=== PATIENT | female | born 1990 | race African-American/Black ===

== ENCOUNTER → 2016-03-04 | Outpatient (CLI) | payer OTHER ==
[2016-03-04 10:28] LABS: CH 28.5; CHCM 32.1; HCT 32.6 % (34.0-46.0); HDW 3.07; HGB 10.6 gm/dL (11.4-16.0); Hypochromasia Slight; MCH 28.8 pg (25.0-35.0); MCHC 32.4 g/dL (31.0-37.0); MCV 89.1 fL (80.0-100.0); Mean Platelet Volume 8.7; RBC 3.66 m/uL (3.80-5.40); RDW 13.7 % (11.5-15.5); WBC 9.7 k/uL (3.8-10.6)
== END | disposition home or self-care (01) ==
LOC: LABWHC1 08:33
PROVIDERS: ATTEND Obstetrics & Gynecology
DX: Z34.82 Encounter for supervision of other normal pregnancy, second trimester (principal); Z3A.00 Weeks of gestation of pregnancy not specified
CPT/HCPCS: 36415; 82950; 85027

== ENCOUNTER → 2016-04-29 | Outpatient (CLI) | payer OTHER ==
--- NOTE | 2016-04-29 15:40 | US ---
EXAMINATION TYPE: US OB anatomy transabd DATE OF EXAM: 04/29/2016 2:56 PM COMPARISON: NONE HISTORY: LGA TECHNIQUE: Transabdominal (TA) EXAM MEASUREMENTS: GESTATIONAL AGE / DATING Physician Established: (35 weeks/1 days) EDC: 06/02/16 Dates by LMP: (34 weeks/6 days) EDC: 06/03/16 Dates by First Scan: (35 weeks/2 days) EDC: 06/01/16 Dates by Current Scan for: (35 weeks/1 days) EDC: 06/02/16 SURVEY IUP: Single PLACENTA: Anterior PREVIA: No previa EMILIA: 15.2 cm Normal CERVICAL LENGTH (transabdominal: norm > 3.0cm): 3.2 cm BIOMETRY PRESENTATION: Vertex LIE: Longitudinal BPD: 8.7 cm 35 weeks / 0 days HC: 31.5 cm 35 weeks / 3 days AC: 31.2 cm 35 weeks / 1 days FL: 7.0 cm 35 weeks / 6 days ESTIMATED WEIGHT IN GRAMS: 2655 grams ESTIMATED WEIGHT IN LBS/OZS: 5 lbs. 14 oz. WEIGHT PERCENTAGE BASED ON ESTABLISHED DATE: 53.4 % HC/AC: 1.01 normal FL/AC: 22.44 normal HEART RATE: 135 bpm RHYTHM: Normal ANATOMY SEEN (within normal limits): * Lateral Vent (< 1 cm) 0.6 cm Choroid Plexus (bilateral) Midline Falx Four Chamber Heart Stomach Situs Nose / Lips Diaphragm Kidneys (bilateral) Bladder Cord Insert Three Vessel Cord Longitudinal Spine Transverse Spine ANATOMY NOT SEEN: due to age and position * Cisterna Magna (< 1.1 cm) cm * Nuchal Fold (< 0.6 cm) cm * Cerebellum (varies with age) cm Cavus Septi Pellucidi Outflow tracts: LVOT/RVOT Arms (bilateral) Legs (bilateral) TECHNOLOGIST IMPRESSION: Single viable IUP 35wks/1day with JOVITA of 06/02/16. IMPRESSION: 1. Single intrauterine gestation estimated at 35 weeks 1 day gestation based on the current ultrasoun d measurements. This would have a calculated EDC of 06/02/2016. Correlate this with her physician gentry garcia EDC of 06/02/2016. 2. Cardiac activity measures 135 bpm.
== END | disposition home or self-care (01) ==
LOC: RADUSWWP 14:22
PROVIDERS: ATTEND Obstetrics & Gynecology
DX: O36.63X0 Maternal care for excessive fetal growth, third trimester, not applicable or unspecified (principal); Z3A.25 25 weeks gestation of pregnancy
CPT/HCPCS: 76811

== ENCOUNTER → 2016-05-05 | Outpatient (CLI) | payer OTHER ==
[2016-05-05 14:57] LABS: Bilirubin, Delta 0.2 mg/dL (0.0-0.2); Total Bilirubin 0.4 mg/dL (0.2-1.3); Total Protein 6.1 g/dL (6.3-8.2)
== END ==
LOC: LABWHC1 14:24
PROVIDERS: ATTEND Obstetrics & Gynecology
DX: O26.619 Liver and biliary tract disorders in pregnancy, unspecified trimester (principal)
CPT/HCPCS: 36415; 80076; 82239

== ENCOUNTER 2016-05-27 20:11 | Inpatient (IN) | payer OTHER ==
[2016-05-27] MEDS ORDERED: CARBOPROST TROMETHAMINE 250 MCG/ML 1 ML AMP IM PRN (20:35)
[2016-05-27] MEDS ORDERED: LIDOCAINE 1% (PF) 10 MG/ML (30 ML SDV) SQ PRN (20:35)
[2016-05-27] MEDS ORDERED: METHYLERGONOVINE 0.2 MG/ML 1 ML AMP IM PRN (20:35)
[2016-05-27] MEDS ORDERED: TERBUTALINE 1 MG/ML VIAL SQ PRN (20:35)
[2016-05-27] MEDS ORDERED: OXYTOCIN 10 UNIT/ML 1 ML VIAL IM PRN (20:35)
[2016-05-27] MEDS ORDERED: LACTATED RINGERS 1,000 ML IV SCH (20:45)
[2016-05-27 21:08] LABS: Basophils % (A) 0 %; CH 25.1; CHCM 30.9; Eosinophils # (A) 0.1 k/uL (0-0.7); Eosinophils % (A) 1 %; HCT 34.6 % (34.0-46.0); HDW 3.33; HGB 11.2 gm/dL (11.4-16.0); Hypochromasia Marked; Luc # (Auto) 0.36; Luc % (Auto) 4; Lymphocytes # (A) 1.4 k/uL (1.0-4.8); Lymphocytes % (A) 15 %; MCH 26.3 pg (25.0-35.0); MCHC 32.4 g/dL (31.0-37.0); MCV 81.4 fL (80.0-100.0); Monocytes # (A) 0.5 k/uL (0-1.0); Monocytes % (A) 5 %; Neutrophils # (A) 7.1 k/uL (1.3-7.7); Neutrophils % (A) 75 %; RBC 4.25 m/uL (3.80-5.40); RDW 15.4 % (11.5-15.5); WBC 9.5 k/uL (3.8-10.6); WBC (Perox) 10.07
[2016-05-27] MEDS: BUTORPHANOL 1 MG/ML 1 ML VIAL IV PRN ×2 (21:12→23:12)
[2016-05-27 21:18] VITALS: BMI 33.1
--- NOTE | 2016-05-27 22:14 | P.HPOB ---
History of Present Illness H&P Date: 05/27/16 Chief Complaint: Contractions This is a 25-year-old female 2 para 1 with an estimated date of confinement of 06/03/2016, estimated gestational age of 39-0/7 weeks, who presented to labor and delivery with complaints of contractions. She denied any rupture membranes, however in triage her water did break during the exam. Clear fluid was noted. course has been uncomplicated and has been with Dr. Hyman. labs: Random glucose-80 Hepatitis B surface antigen-negative Hemoglobin-12.3 Rubella-immune Blood type-B+ Antibody screen-negative Quad screen-negative Obstetrical ultrasounds-normal anatomy One hour Glucola-124 Group B streptococcus-negative Obstetrical history: . History of 1 vaginal delivery at term. Review of Systems Gastrointestinal: Reports abdominal pain (Contractions) Genitourinary: Reports pelvic pain, Reports Past Medical History Past Medical History: Asthma Additional Past Medical History / Comment(s): Anemia History of Any Multi-Drug Resistant Organisms: None Reported Past Surgical History: Adenoidectomy, Tonsillectomy Additional Past Surgical History / Comment(s): lymph nodes removed in neck Past Anesthesia/Blood Transfusion Reactions: Previous Problems w/ Anesthesia Additional Past Anesthesia/Blood Transfusion Reaction / Comment(s): Pt states trouble breathing with last epidural Past Psychological History: No Psychological Hx Reported Smoking Status: Never smoker Past Alcohol Use History: None Reported Past Drug Use History: None Reported - Past Family History Mother Family Medical History: No Reported History Medications and Allergies Home Medications Medication Instructions Recorded Confirmed Type Albuterol Inhaler [Ventolin Hfa 1 puff INHALATION RT-Q6H PRN 12/25/15 05/27/16 History Inhaler] Doxylamine Succinate [Unisom] 25 mg PO HS 12/25/15 05/27/16 History Gummies 1 tab PO QAM 12/25/15 05/27/16 History Pyridoxine [Vitamin B-6] 50 mg PO HS 12/25/15 05/27/16 History Allergies Allergy/AdvReac Type Severity Reaction Status Date / Time No Known Allergies Allergy Verified 05/27/16 20:20 Exam Osteopathic Statement: *. No significant issues noted on an osteopathic structural exam other than those noted in the History and Physical/Consult. - Vital Signs Vital signs: Vital Signs Temp Pulse Resp BP Pulse Ox 05/27/16 20:54 96.8 F L 84 16 140/71 100 05/27/16 20:18 96.8 F L 74 16 140/71 100 Intake and Output 05/27/16 05/27/16 05/27/16 06:59 14:59 22:59 Other: Weight 84.822 kg Patient Weight 05/28/16 06:59 Weight 84.822 kg HEENT: Within normal limits Heart: Regular rate and rhythm Lungs: Clear to auscultation bilaterally Abdomen: Cervix: 6-7 cm/70%/-2 station, posterior heart tones: Reactive Contractions: Every 3-5 minutes Extremities: Negative Homans Results Result Diagrams: 05/27/16 20:55 Abnormal Lab Results - Last 24 Hours (Table) 05/27/16 Range/Units 20:55 Hgb 11.2 L (11.4-16.0) gm/dL Assessment and Plan (1) 39 weeks gestation of Status: Acute (2) Active labor at term Status: Acute Plan: Admit for active labor. Stadol as needed for pain control. Expectant management.
[2016-05-27] MEDS ORDERED: OXYTOCIN 30 UNITS/500 ML NS 30 UNIT in SALINE 1 500ML.BAG IV SCH (22:15)
[2016-05-28] MEDS ORDERED: HYDROCORTISONE 2.5% RECTAL CREAM 30 GM TUBE RECTAL PRN (01:18)
[2016-05-28] MEDS ORDERED: OXYTOCIN 30 UNITS/500 ML NS 30 UNIT in SALINE 1 500ML.BAG IV SCH (01:18)
[2016-05-28] MEDS ORDERED: Acetaminophen-Codeine 300-30mg TAB PO PRN (01:18)
[2016-05-28] MEDS ORDERED: SIMETHICONE 80 MG CHEWABLE PO PRN (01:18)
[2016-05-28] MEDS ORDERED: BENZOCAINE/MENTHOL SPRAY 1 GM/SPRAY AEROSOL TOPICAL PRN (01:18)
[2016-05-28] MEDS ORDERED: diphenhydrAMINE 50 MG/ML 1 ML VIAL IVP PRN ×2 (01:18)
[2016-05-28] MEDS ORDERED: ACETAMINOPHEN TAB 325 MG TAB PO PRN (01:18)
[2016-05-28] MEDS ORDERED: diphenhydrAMINE 50 MG CAP PO PRN (01:18)
[2016-05-28] MEDS ORDERED: diphenhydrAMINE 25 MG CAP PO PRN (01:18)
[2016-05-28] MEDS ORDERED: WITCH HAZEL 1 EACH MED..PAD TOPICAL PRN (01:18)
[2016-05-28] MEDS ORDERED: ALBUTEROL NEBULIZED 2.5 MG/3 ML INHALATION PRN (01:18)
[2016-05-28] MEDS ORDERED: LANOLIN CREAM 5 GM TUBE TOPICAL PRN (01:18)
[2016-05-28] MEDS ORDERED: ZOLPIDEM 5 MG TAB PO PRN (01:18)
--- NOTE | 2016-05-28 01:21 | P.PROBDLV ---
Vaginal Delivery Note - . Vaginal Delivery Note: The patient progressed to complete dilation after oxytocin augmentation of labor and Stadol for pain control. Once reaching complete dilation, she began pushing. 's head came to a crown and then delivered in a right occiput anterior position across the perineum followed by the anterior left shoulder. Nose and mouth were bulb suctioned at the perineum. With one further push, the remainder the infant easily delivered and was placed on mother's abdomen. Cord was clamped and cut and was taken to warmer for evaluation. Terminal meconium was noted at delivery. A viable male infant was noted with scores of 9 at 1 minute and 10 at 5 minutes and weight was 8 lbs. 0 oz. Placenta delivered shortly thereafter, intact, with a three-vessel cord. Uterus contracted well after oxytocin was given and uterine massage was carried out. Inspection of the perineum revealed a small first-degree perineal laceration. This area was anesthetized with 1% lidocaine and then sutured with 3-0 Vicryl suture in a running locked fashion. Estimated blood loss is approximately 100 mL's. Both mother and are in stable condition.
[2016-05-28] MEDS: IBUPROFEN 600 MG TAB PO PRN ×2 (02:28→08:06)
[2016-05-28] MEDS: Acetaminophen-Codeine 300-30mg TAB PO PRN ×3 (03:02→17:30)
[2016-05-28 06:53] LABS: Basophils % (A) 0 %; CHCM 30.7; Eosinophils # (A) 0.1 k/uL (0-0.7); Eosinophils % (A) 1 %; HCT 32.4 % (34.0-46.0); HGB 10.5 gm/dL (11.4-16.0); Hypochromasia Marked; Luc # (Auto) 0.26; Luc % (Auto) 2; Lymphocytes % (A) 8 %; MCH 26.5 pg (25.0-35.0); MCHC 32.6 g/dL (31.0-37.0); MCV 81.5 fL (80.0-100.0); Mean Platelet Volume 9.5; Monocytes # (A) 0.5 k/uL (0-1.0); Monocytes % (A) 4 %; Neutrophils # (A) 10.3 k/uL (1.3-7.7); Neutrophils % (A) 85 %; RBC 3.98 m/uL (3.80-5.40); RDW 15.4 % (11.5-15.5); WBC 12.1 k/uL (3.8-10.6); WBC (Perox) 13.72
[2016-05-28] MEDS: SENNOSIDES-DOCUSATE SODIUM 1 EACH TAB PO SCH ×2 (08:06→21:20)
[2016-05-28 16:14] VITALS: RESP 16
[2016-05-29] MEDS: SENNOSIDES-DOCUSATE SODIUM 1 EACH TAB PO SCH (08:21)
[2016-05-29] MEDS: Acetaminophen-Codeine 300-30mg TAB PO PRN (08:22)
--- NOTE | 2016-05-29 08:29 | P.DS ---
Providers Date of admission: 05/27/16 20:33 Expected date of discharge: 05/29/16 Attending physician: Dannielle Petersen Primary care physician: Stated None - Discharge Diagnosis(es) (1) 39 weeks gestation of Current Visit: Yes Status: Acute (2) Active labor at term Current Visit: Yes Status: Acute Hospital Course: This is a 25-year-old female 2 para 1 who presented with spontaneous rupture of membranes and active labor. She delivered vaginally a viable male on 05/28/2016 with scores of 9 at 1 minute and 10 at 5 minutes and infant weight of 8 pounds. Her course has been uncomplicated. Her lochia is decreasing. Her pain is fairly well controlled with Tylenol 3. Bleeding is minimal. She is bottle feeding. Vital signs are stable. Abdomen is soft with fundus firm and nontender. Extremities show negative Homans. Impression is status post vaginal delivery day #1. Plan is to discharge home today. Routine instructions are given. She will be given prescriptions for ibuprofen and Tylenol 3. She is advised to follow up with Dr. Hyman in the office in 6 weeks for check. She is advised to call the office if she has any further questions or concerns prior to her appointment time. Procedures: Spontaneous vaginal delivery of a viable male infant on 05/28/2016 Patient Condition at Discharge: Stable Plan - Discharge Summary New Discharge Prescriptions: Acetaminophen-Codeine 300-30mg [Tylenol w/codeine #3] 1 each PO Q4HR PRN #30 tab PRN Reason: Mild Pain exceeding Tylenol Ibuprofen [Motrin] 600 mg PO Q6HR PRN #60 tab PRN Reason: Mild Pain Or Fever >= 100.5 Discharge Medication List Albuterol Inhaler [Ventolin Hfa Inhaler] 1 puff INHALATION RT-Q6H PRN 12/25/15 [ History] Gummies 1 tab PO QAM 12/25/15 [History] Pyridoxine [Vitamin B-6] 50 mg PO HS 12/25/15 [History] Acetaminophen-Codeine 300-30mg [Tylenol w/codeine #3] 1 each PO Q4HR PRN #30 tab 05/29/16 [Rx] Ibuprofen [Motrin] 600 mg PO Q6HR PRN #60 tab 05/29/16 [Rx] Follow up Appointment(s)/Referral(s): Joselito Hyman DO [Doctor of Osteopathic Medicine] - 6 Weeks Activity/Diet/Wound Care/Special Instructions: Instructions 1. Do not begin any exercise program for 3 weeks. 2. Do not resume sexual relations for 3 weeks or longer if uncomfortable. 3. You may take tub baths or showers at any time. 4. You may use tampons if desired after 3 weeks. 5. Keep the area of episiotomy (stitches) clean and dry. 6. If you are not nursing, wear a good fitting, supportive bra during the day and limit fluid intake for at least 1 week to prevent breast engorgement. 7. Call the office, [phone], within the next week to make appointment for your 6 week checkup if it has not already been made. 8. Report any of the following occurrences to the doctor promptly: a. Heavy, excessive bleeding b. Chills, fever c. Burning or frequency of urination d. Pain or redness and breasts if nursing e. Increasing pain or swelling in episiotomy (stitches). In addition to the above instructions, the following additional should be followed: 1. No heavy lifting or straining (exercising) until after 6 week checkup. 2. Keep abdominal incision clean and dry: You may wear a dressing if more comfortable. 3. Make office appointment for 10 days after going home or as instructed by her doctor. Discharge Disposition: HOME SELF-CARE
[2016-05-29 10:02] VITALS: BP 131/73; PULSE 78; TEMP 98.8
== END 2016-05-29 14:00 | disposition home or self-care (01) | DRG 775 ==
LOC: FBPOP 20:11 → 4FBP 20:33
PROVIDERS: ADMIT Obstetrics & Gynecology; ATTEND Obstetrics & Gynecology
PROC: 10E0XZZ Delivery of Products of Conception, External Approach (ICD-10-PCS; principal; 2016-05-28)
PROC: 0HQ9XZZ Repair Perineum Skin, External Approach (ICD-10-PCS; 2016-05-28)
DX: O70.0 First degree perineal laceration during delivery (principal); J45.909 Unspecified asthma, uncomplicated; O99.52 Diseases of the respiratory system complicating childbirth; O77.0 Labor and delivery complicated by meconium in amniotic fluid; Z3A.39 39 weeks gestation of pregnancy; Z37.0 Single live birth; Z79.899 Other long term (current) drug therapy; Z86.2 Personal history of diseases of the blood and blood-forming organs and certain disorders involving the immune mechanism
CPT/HCPCS: 59025; 85025; 88307; 99215

== ENCOUNTER → 2017-11-25 | Outpatient (CLI) | payer OTHER ==
--- NOTE | 2017-11-25 15:56 | US ---
EXAMINATION TYPE: US kidneys/renal and bladder DATE OF EXAM: 11/25/2017 COMPARISON: NONE CLINICAL HISTORY: N39.0 Recurrent UTI. EXAM MEASUREMENTS: Right Kidney: 9.7 x 4.3 x 4.8 cm Left Kidney: 10.0 x 4.6 x 4.7 cm Right Kidney: No hydronephrosis or masses seen Left Kidney: No hydronephrosis or masses seen Bladder: not fully distended Tech reports: Distraction of unattended child in room. IMPRESSION: No retroperitoneal abnormality identified.
== END | disposition home or self-care (01) ==
LOC: RADUSWWP 12:19
PROVIDERS: ATTEND Internal Medicine
DX: N39.0 Urinary tract infection, site not specified (principal); Z88.0 Allergy status to penicillin
CPT/HCPCS: 76770

== ENCOUNTER → 2019-10-09 | Outpatient (CLI) | payer OTHER ==
--- NOTE | 2019-10-10 08:00 | US ---
EXAMINATION TYPE: US pelvic complete DATE OF EXAM: 10/09/2019 COMPARISON: US 06/14/2012 CLINICAL HISTORY: N93.8 Dysfunctional uterine bleeding. TECHNIQUE: . Transabdominal sonographic images of the pelvis were acquired. Date of LMP: September 11, 2019 EXAM MEASUREMENTS: Uterus: 8.9 x 4.1 x 4.5 cm Endometrial Stripe: 0.8 cm Right Ovary: 1.8 x 1.1 x 1.5 cm Left Ovary: 2.3 x 1.4 x 1.3 cm 1. Uterus: Anteverted wnl 2. Endometrium: wnl 3. Right Ovary: wnl 4. Left Ovary: wnl 5. Bilateral Adnexa: wnl 6. Posterior cul-de-sac: wnl IMPRESSION: Unremarkable transabdominal pelvic ultrasound study.
== END | disposition home or self-care (01) ==
LOC: RADUSWWP 12:30
PROVIDERS: ATTEND Obstetrics & Gynecology
DX: N93.8 Other specified abnormal uterine and vaginal bleeding (principal)
CPT/HCPCS: 76856

== ENCOUNTER → 2019-10-19 | Outpatient (CLI) | payer OTHER ==
[2019-10-19 11:22] LABS: Prolactin 13.8 ng/mL (2.8-29.2)
[2019-10-19 11:24] LABS: Estradiol 216.1 pg/mL; Follicle Stimulating Hormone 17.5 mIU/mL
== END | disposition home or self-care (01) ==
LOC: LABWHC1 07:27
PROVIDERS: ATTEND Obstetrics & Gynecology
DX: N93.8 Other specified abnormal uterine and vaginal bleeding (principal)
CPT/HCPCS: 36415; 82670; 83001; 83002; 84146; 84439; 84443; 84479

== ENCOUNTER 2021-01-07 07:34 | Emergency (ER) | payer OTHER ==
[2021-01-07] MEDS ORDERED: SODIUM CHLORIDE 0.9% 1,000 ML IV STA (08:24)
[2021-01-07] MEDS ORDERED: METOCLOPRAMIDE 5 MG/ML 2 ML VIAL IVP STA (08:24)
[2021-01-07] MEDS ORDERED: diphenhydrAMINE 50 MG/ML 1 ML VIAL IVP STA (08:24)
[2021-01-07] MEDS ORDERED: ACETAMINOPHEN TAB 500 MG TAB PO STA (08:25)
--- NOTE | 2021-01-07 08:37 | ED ---
General Adult HPI - General Chief complaint: Headache Stated complaint: Headaches Time Seen by Provider: 01/07/21 07:55 Source: patient, RN notes reviewed Mode of arrival: ambulatory Limitations: no limitations - History of Present Illness Initial comments: 30-year-old female with a past medical history of asthma, anemia presents to the emergency room for a chief complaint of headache. Patient states on I days ago on Wednesday she started to not feel well. She has had congestion and a runny nose. She started to get a left-sided headache. On Wednesday the headache was on both sides of her head. He has been taking naproxen and it hasn't been helping much. No fevers. She did test negative for coronary virus.Patient has no other complaints at this time including shortness of breath, chest pain, abdominal pain, nausea or vomiting, or visual changes. - Related Data Home Medications Medication Instructions Recorded Confirmed Multivitamins, Thera [Multivitamin 1 tab PO DAILY 01/07/21 01/07/21 (formulary)] Allergies Allergy/AdvReac Type Severity Reaction Status Date / Time amoxicillin AdvReac Yeast Verified 01/07/21 12:06 infection Review of Systems ROS Statement: Those systems with pertinent positive or pertinent negative responses have been documented in the HPI. ROS Other: All systems not noted in ROS Statement are negative. Past Medical History Past Medical History: Asthma Additional Past Medical History / Comment(s): Anemia History of Any Multi-Drug Resistant Organisms: None Reported Past Surgical History: Adenoidectomy, Tonsillectomy Additional Past Surgical History / Comment(s): lymph nodes removed in neck Past Anesthesia/Blood Transfusion Reactions: Previous Problems w/ Anesthesia Additional Past Anesthesia/Blood Transfusion Reaction / Comment(s): Pt states trouble breathing with last epidural Past Psychological History: No Psychological Hx Reported Smoking Status: Never smoker Past Alcohol Use History: None Reported Past Drug Use History: None Reported - Past Family History Mother Family Medical History: No Reported History General Exam Limitations: no limitations General appearance: alert, in no apparent distress Head exam: Present: atraumatic Eye exam: Present: normal appearance, PERRL, EOMI. Absent: scleral icterus, conjunctival injection ENT exam: Present: normal exam, mucous membranes moist Neck exam: Present: normal inspection, full ROM. Absent: tenderness Respiratory exam: Present: normal lung sounds bilaterally. Absent: respiratory distress, wheezes Cardiovascular Exam: Present: regular rate, normal rhythm, normal heart sounds GI/Abdominal exam: Present: soft, normal bowel sounds. Absent: distended, tenderness Neurological exam: Present: alert, oriented X3, normal gait, other (GCS 15) Course Vital Signs 01/07/21 07:35 Temperature 99.1 F Pulse Rate 83 Respiratory 18 Rate Blood Pressure 120/83 O2 Sat by Pulse 99 Oximetry Medical Decision Making - Medical Decision Making Patient was reevaluated. She had significant improvement in symptoms. Pain is now 2 out of 10. Denies any visual changes. No focal neurologic deficits. Dr. Dodson was consulted. He states that he reviewed previous CAT scans from 2013 and they were similar. At this time he recommends outpatient follow-up with ophthalmology and neurology. Patient has an appointment with her bias cutting machine operator tomorrow and she will talk to him about this but if they do not feel comfortable they will follow up with ophthalmology. She will return here for any worsening symptoms. - Lab Data Lab Results 01/07/21 01/07/21 Range/Units 09:10 09:10 Urine HCG, Qual Not Detected (Not Detectd) Coronavirus (PCR) Not Detected (Not Detectd) Disposition Clinical Impression: Headache Narrative: low lying cerebellar tonsils Disposition: HOME SELF-CARE Condition: Good Instructions (If sedation given, give patient instructions): Acute Headache ( ED) Additional Instructions: please see your bias cutting machine operator tomorrow to rule out papilledema. If they want you to see an buckle strap puncher please see Dr. Chahal. Also see a neurologist outpatient as soon as possible, Dr Orozco. Take Motrin and Tylenol for pain. Return to the emergency room for any worsening symptoms. Is patient prescribed a controlled substance at d/c from ED?: No Referrals: Nathan Laurent MD [Primary Care Provider] - 1-2 days Navid Chahal MD [STAFF PHYSICIAN] - 1-2 days Kal Orozco DO [STAFF PHYSICIAN] - 1-2 days Time of Disposition: 12:38
--- NOTE | 2021-01-07 09:12 | CT ---
EXAMINATION TYPE: CT brain wo con DATE OF EXAM: 01/07/2021 COMPARISON: 03/19/2014 HISTORY: GHOTRA CT DLP: 1095.4 mGycm. Automated Exposure Control for Dose Reduction was Utilized. TECHNIQUE: CT scan of the head is performed without contrast. FINDINGS: There is no acute intracranial hemorrhage, mass effect, or midline shift identified. The ventricles and sulci are within normal limits in size. The globes are symmetric and there are changes of chronic sinusitis. Stable calcification in the basa l ganglia. Cerebellar tonsils low-lying at or just below level of foramen magnum. Partially into sell a turcica.. IMPRESSION: 1. Cerebellar tonsils are low-lying in position and there is a partially empty sella turcica. This ca n occasionally be associated with increased intracranial pressure correlate clinically. MRI recommend ed to exclude Chiari malformation. 2. Chronic sinusitis.
[2021-01-07] MEDS ORDERED: KETOROLAC 15 MG/ML 1 ML VIAL IVP STA (10:39)
[2021-01-07 13:26] VITALS: BP 118/20; PULSE 80; RESP 20; TEMP 99
== END 2021-01-07 13:25 | disposition home or self-care (01) ==
LOC: EC 07:34
DX: R51.9 Headache, unspecified (principal); Z20.822 Contact with and (suspected) exposure to COVID-19; J45.909 Unspecified asthma, uncomplicated
CPT/HCPCS: 81025; 87635; 70450; 99284; 96374; 96375 ×2; 96361 ×2; J1200; J2765; J1885

== ENCOUNTER → 2023-07-27 | Outpatient (CLI) | payer OTHER ==
--- NOTE | 2023-07-27 17:53 | US ---
EXAMINATION TYPE: US thyroid st tissue head/neck DATE OF EXAM: 07/27/2023 COMPARISON: US 06/29/2022 CLINICAL INDICATION: Female, 32 years old with history of E04.1 THYROID NODULE; Thyroid nodule. GLAND SIZE: Right Lobe: 4.8 x 1.5 x 1.4 cm Overall Parenchyma: homogeneous Left Lobe: 5.1 x 1.8 x 1.4 cm Overall Parenchyma: homogeneous Isthmus Thickness: 0.25 cm NODULES RIGHT: # of nodules measured on right: 1 1. 0.4 X 0.3 x 0.2 cm, lower medial, Prior size: Not seen on prior TIRADS Score: 0 TIRADS Category 1: Composition: Cystic or almost completely cystic (0 points). Recommendation: No FNA LEFT: # of nodules measured on left: 1 - Possible nodule versus area of esophagus? Difficult to determine with certainty. 1. 1.3 X 1.0 x 0.8 cm, mid mid, Prior size: 1.1 x 1.0 x 0.6 cm TIRADS Score: 3 TIRADS Category 3: Composition: Mixed cystic and solid (1 point). Echogenicity: Hyperechoic or isoechoic (1 point). Shape: Wider than tall (0 points). Margin: Smooth (0 points). Echogenic foci: Macrocalcifications (1 point) Recommendation: If >2.5cm: FNA; If >1.5cm: Follow up at 1,3,5 years ISTHMUS: # of nodules measured in the isthmus: 0 Bilateral neck scanned, no evidence of lymphadenopathy. IMPRESSION: Thyroid nodules that meet criteria for follow-up.
== END | disposition home or self-care (01) ==
LOC: RADUSWWP 16:20
PROVIDERS: ATTEND Internal Medicine
DX: E04.2 Nontoxic multinodular goiter (principal)
CPT/HCPCS: 76536

== ENCOUNTER → 2024-01-24 | Outpatient (CLI) | payer OTHER ==
--- NOTE | 2024-01-24 16:42 | MR ---
EXAMINATION TYPE: MR shoulder RT wo con DATE OF EXAM: 01/24/2024 4:17 PM COMPARISON: None. CLINICAL INDICATION: Female, 33 years old with history of M65.911 UNSPECIFIED SYNOVITIS AND TENOSYNOV ITIS, R, Right shoulder pain since Oct 2023, Difficult to raise arm IV Contrast: cc (None if empty) TECHNIQUE: Multiplanar, multisequence imaging of the right shoulder is performed without contrast. FINDINGS: There is no bone contusion or fracture. There is no degeneration of the AC joint and glenohumeral quinn nt and there are no joint effusions. There is no subacromial or subdeltoid bursitis. There is an intrasubstance tear in the infraspinatus tendon approximately 1 cm proximal to its insert ion on the lateral humeral head. There is no retraction of the musculotendinous junction. The supraspinatus and subscapularis tendons are intact. The biceps tendon is normal in signal intensity and position within the bicipital groove and the crystal ps anchor is intact. There is no definite labral tear. IMPRESSION: Intrasubstance tear of the infraspinatus tendon with no retraction. No other significant abnormality seen. [facility], Workstation: [facility], 01/24/2024 4:40 PM
== END | disposition home or self-care (01) ==
LOC: RADMRIMAIN 15:22
PROVIDERS: ATTEND Family Medicine
DX: M75.111 Incomplete rotator cuff tear or rupture of right shoulder, not specified as traumatic (principal); M65.911 Unspecified synovitis and tenosynovitis, right shoulder